=== PATIENT | female | born 1965 | race Caucasian/White ===

== ENCOUNTER 2019-09-22 13:29 | Emergency (ER) | payer MEDICAID ==
--- NOTE | 2019-09-22 13:42 | ER Document Report ---
ED Medical Screen (RME) - General Chief Complaint: Headache Stated Complaint: MIGRAINE, SWOLLEN EYE Time Seen by Provider: 09/22/19 13:38 Primary Care Provider: PAOLA OCONNOR NP [Primary Care Provider] - Follow up as needed Mode of Arrival: Ambulatory Information source: Patient Notes: 53-year-old presented to ED for complaint of migraine behind the left eye back to the frontal area. She states she has had migraines since she got a eye injury 7 years ago. States the swelling to the left eye has been for 2 weeks or more the pain has increased to the point of needing to come to the emergency room today. She has had the pain for the 2 weeks. She states she has been taken Tylenol at home. She states she saw her doctor at [facility] and he told her she needed to go see a doctor. She states she tried to go to her primary doctor and they sent her to the emergency room. There is swelling to above and below the left eye. She states her mother had mini strokes and she was drooling this morning. There is no facial droop at this time. She states she had a detached retina at the time of the injury and she has had 6 surgeries on the side. I have greeted and performed a rapid initial assessment of this patient. A comprehensive ED assessment and evaluation of the patient, analysis of test results and completion of medical decision making process will be conducted by an additional ED providers. - Related Data Allergies/Adverse Reactions: morphine [Morphine] Allergy (Verified 09/22/19 13:35) Past Medical History Psychiatric Medical History: Reports: Hx Depression Past Surgical History: Reports: Hx Hysterectomy - Immunizations Hx Diphtheria, Pertussis, Tetanus Vaccination: Yes Physical Exam - Vital signs Vitals: Temp Pulse Resp BP Pulse Ox 97.8 F 85 20 152/77 H 97 09/22/19 13:32 09/22/19 13:32 09/22/19 13:32 09/22/19 13:32 09/22/19 13:32 Course - Vital Signs Vital signs: Temp Pulse Resp BP Pulse Ox 97.8 F 85 20 152/77 H 97 09/22/19 13:32 09/22/19 13:32 09/22/19 13:32 09/22/19 13:32 09/22/19 13:32 Doctor's Discharge - Discharge Referrals: OCONNOR,PAOLA, LOGISTICS DIRECTOR [Primary Care Provider] - Follow up as needed
[2019-09-22 15:15] LABS: ABSOLUTE BASOPHILS # (AUTO) 0.1 10^3/uL (0.0-0.2); ABSOLUTE EOSINOPHILS # (AUTO) 0.2 10^3/uL (0.0-0.6); ABSOLUTE LYMPHOCYTES (AUTO) 3.3 10^3/uL (0.5-4.7); ABSOLUTE MONOCYTES (AUTO) 0.4 10^3/uL (0.1-1.4); ABSOLUTE NEUT (AUTO) 5.2 10^3/uL (1.7-8.2); BASOPHILS % (AUTO) 0.8 % (0-2); EOSINOPHILS % (AUTO) 2.4 % (0-6); HEMATOCRIT 37.3 % (36.0-47.0); LYMPHOCYTES % (AUTO) 35.5 % (13-45); MEAN CORPUSCULAR HEMOGLOBIN 31.4 pg (27.0-33.4); MEAN CORPUSCULAR HGB CONC 34.8 g/dL (32.0-36.0); MEAN CORPUSCULAR VOLUME 90 fl (80-97); MONOCYTES % (AUTO) 4.8 % (3-13); PLATELET COUNT 295 10^3/uL (150-450); RED BLOOD COUNT 4.13 10^6/uL (3.72-5.28); RED CELL DISTRIBUTION WIDTH 13.4 % (11.5-14.0); SEGMENTED NEUTROPHILS % (AUTO) 56.5 % (42-78); TOTAL CELLS COUNTED % (AUTO) 100 %; WHITE BLOOD COUNT 9.2 10^3/uL (4.0-10.5)
[2019-09-22 15:20] LABS: INTERNATIONAL RATION (INR) 0.98
[2019-09-22 15:21] LABS: PARTIAL THROMBOPLASTIN TIME 28.9 SEC (23.5-35.8)
[2019-09-22 15:30] LABS: ALBUMIN 4.5 g/dL (3.5-5.0); ALKALINE PHOSPHATASE 58 U/L (38-126); ASPARTATE AMINO TRANSFERASE 34 U/L (14-36); BILIRUBIN,DIRECT 0.1 mg/dL (0.0-0.4); BILIRUBIN,TOTAL 0.4 mg/dL (0.2-1.3); BLOOD UREA NITROGEN 10 mg/dL (7-20); CALCIUM 9.6 mg/dL (8.4-10.2); CARBON DIOXIDE 28 mmol/L (22-30); CHLORIDE 104 mmol/L (98-107); GLUCOSE 84 mg/dL (75-110); POTASSIUM 4.5 mmol/L (3.6-5.0); TOTAL PROTEIN 7.6 g/dL (6.3-8.2)
[2019-09-22 15:31] LABS: ANION GAP 9 (5-19)
--- NOTE | 2019-09-22 15:34 | ER Document Report ---
ED General - General Chief Complaint: Headache Stated Complaint: MIGRAINE, SWOLLEN EYE Time Seen by Provider: 09/22/19 13:38 Primary Care Provider: PAOLA OCONNOR NP [NURSE PRACTITIONER] - Follow up as needed Mode of Arrival: Ambulatory TRAVEL OUTSIDE OF THE [place] IN LAST 30 DAYS: No - Related Data Allergies/Adverse Reactions: morphine [Morphine] Allergy (Verified 09/22/19 13:35) Past Medical History - General Information source: Patient - Social History Smoking Status: Unknown if Ever Smoked Chew tobacco use (# tins/day): No Frequency of alcohol use: None Drug Abuse: None Family History: Other - Mom with a history of TIAs at early age Patient has suicidal ideation: No Patient has homicidal ideation: No Psychiatric Medical History: Reports: Hx Depression Past Surgical History: Reports: Hx Hysterectomy - Immunizations Hx Diphtheria, Pertussis, Tetanus Vaccination: Yes Physical Exam - Vital signs Vitals: Temp Pulse Resp BP Pulse Ox 97.8 F 85 20 152/77 H 97 09/22/19 13:32 09/22/19 13:32 09/22/19 13:32 09/22/19 13:32 09/22/19 13:32 - Notes Notes: Patient presents emergency department complaining of a headache this been going on for the past 2 weeks. Headache is located in the temporal area. It came on gradually got progressively worse was not a thunderclap headache not the worst headache she is ever had. Headache is similar to previous headaches she is had. Reports that she had a significant injury to her left side of her face and I several years ago and since that time is been having intermittent headaches. This is similar to what she said before. She is tried Tylenol without relief called her family doctor referred to the ED. Patient also reports that she had swelling around her left eye for the past 2 weeks also. This several times in the past health was related to her previous eye injury is received steroid injections in her eye. She is to get these every 3 months last one was 3 months ago due for one next week she has not had any fevers URI symptoms sore throat cough chest pain shortness of breath nausea vomiting abdominal pain rashes itching. No contact history is obtainable. Vision is chronically decreased in her left eye and is unchanged. Feeling there is also reports that the patient had a droopy smile and was droo ling earlier today that lasted for about an hour. They said she is back to normal at this time. She is never had this before. Mother has a history of TIAs but the patient is never had a TIA. During this time the headache was not worse. She had no numbness or weakness in the arms or legs and no dizziness. The members say that her speech and swallow back to normal Medical history for previous OH several years ago that was detected on an EKG, she never had a cardiac evaluation after this, she has no diabetes hypertension elevated cholesterol. Also has depression previous facial injury with damage to the facial nerves and a detached retina Social history smokes but quit. No alcohol. Review of systems pertinent positives and negatives in HPI otherwise all the systems were reviewed and acutely negative PHYSICIAN EXAM -vital signs are noted triage note and note from triage reviewed GENERAL: Well-appearing, well-nourished and in __no acute distress____ HEAD: Atraumatic, normocephalic. EYES: The right pupil is round and reactive. The left pupil slightly irregular he says is normal. There is a hyperpigmented area at 6:00 left eye which is chronic. Extraocular movements intact, sclera anicteric, conjunctiva are normal. There is no hyphema or evidence of conjunctival hemorrhage. Some mild swelling of the upper and lower lid no swelling in the rest of the face. ENT: nares patent, oropharynx clear without exudates. No lesions in the mouth moist mucous membranes. She has tenderness in the left religious area but no pulsations. Rest of the face is nontender she has no tenderness over the mandibles NECK: supple without lymphadenopathy no meningeal signs no bruit LUNGS: Breath sounds clear to auscultation bilaterally and equal. No wheezes rales or rhonchi. HEART: Regular rate and rhythm without murmurs ABDOMEN: Soft, nontender, normoactive bowel sounds. EXTREMITIES: No deformity, no edema. NEUROLOGICAL: Alert and oriented x4 slightly asymmetric forehead smile which she says is chronic. Symmetrical smile. Tongue is midline she has an intact gag and symmetrical surgical shrug motor strength is 5/5 bilaterally in the lower extremities. Sensation is intact to pinprick and light touch. Toes downgoing. Gait was normal. Negative Romberg Skin reveals no rashes PSYCH: Normal mood, normal affect. SKIN: Warm, Dry, normal turgor, no rashes or lesions noted. BACK-nontender in the midline Course - Re-evaluation Re-evalutation: 09/22/19 18:36 ED patient is remained stable she had serial exams has remained neurologically intact with no additional episodes of drooling. Treated with Reglan and Benadryl with no relief and then 1 dose of fentanyl with significant provement of symptoms. At this point she says headache is markedly improved and she is actually able to open her eye a little bit better. Medical decision-making patient presents with a left-sided headaches abnormal for 2 weeks that she has had in the past due to her retinal detachment. Head CT is negative. Presentation certainly not consistent with subarachnoid hemorrhage or meningitis. Symptoms some confusion where she is reports some drooling and some facial droop the last for about 30 minutes with no other symptoms. Does not have significant risk factors for CVA. CT of the head and neck were both negative. I did talk to the patient about the symptoms and offered the patient overnight observation but she prefers to go home with her third and certainly think is reasonable. She will need follow-up with the family doctor to check her cholesterol. I recommended she start taking 1 baby aspirin daily after she sees her eye doctor on Wednesday because she is scheduled for steroid injection. To follow-up with the family doctor. She be given a short course of narcotics for pain and was warned about the side effects of the medication. Of note patient reports that she is really not allergic to morphine it just makes her very drowsy and she had no evidence of allergic reaction to the fentanyl Dictation was done using voice recognition software. There may be some gr ammatical errors which are unintentional 09/22/19 19:00 09/22/19 19:01 09/22/19 19:06 Dictation was done using voice recognition software. There may be some grammatical errors which are unintentional - Vital Signs Vital signs: Temp Pulse Resp BP Pulse Ox 97.8 F 85 20 152/77 H 97 09/22/19 13:32 09/22/19 13:32 09/22/19 13:32 09/22/19 13:32 09/22/19 13:32 - Laboratory Result Diagrams: 09/22/19 15:01 09/22/19 15:01 Laboratory results interpreted by me: 09/22/19 15:01 Creatinine 0.49 L - Diagnostic Test Radiology reviewed: Reports reviewed - EKG Interpretation by Me Additional EKG results interpreted by me: 09/22/19 18:36 EKG read by me shows a normal sinus rhythm with a normal axis and QT interval. There is no ST abnormalities Discharge - Discharge Clinical Impression: Headache around the eyes, Elevated blood pressure, Facial droop Condition: Good Disposition: HOME, SELF-CARE Instructions: Oral Narcotic Medication ([facility]), Headache ([facility]), Transient Ischemic Attack ([facility]) Additional Instructions: Please review the discharge instructions, they will tell you about your disease/injury and what you need to return to the ED for Return to the ED if you feel worse or can follow-up with your family doctor Your blood pressure was elevated today needs to be rechecked again in 1 to 2 weeks to determine if need to be on medication or have your medications adjusted. Untreated hypertension can cause heart attack stroke and kidney failure The pain medications may cause drowsiness. Be careful if you are using crutches. Do not drive or operate machinery. Do not take Tylenol with the pain medication Start taking one enteric-coated aspirin daily after you see your eye doctor Prescriptions: Hydrocodone/Acetaminophen [[place] 5-325 mg Tablet] 1 tab PO Q6 #10 tablet Forms: Elevated Blood Pressure Referrals: PAOLA OCONNOR NP [NURSE PRACTITIONER] - Follow up as needed
[2019-09-22] MEDS ORDERED: METOCLOPRAMIDE HCL INJ/PF 10 MG/2 ML SDV IV ONE (15:40)
[2019-09-22] MEDS ORDERED: DIPHENHYDRAMINE HCL 50 MG/ML VIAL IV ONE (15:40)
--- NOTE | 2019-09-22 16:48 | RADIOLOGY REPORT (SQ) ---
EXAM DESCRIPTION: CT HEAD COMBO COMPLETED DATE/TIME: 09/22/2019 4:26 pm REASON FOR STUDY: TIA COMPARISON: None. TECHNIQUE: Axial images acquired through the brain without and with intravenous contrast. Images re viewed with bone, brain and subdural windows. Additional sagittal and coronal reconstructions were g enerated. Images stored on PACS. CT angio [place] of [place] was performed. Thin section postcontrast CT images were reviewed with maxim um intensity projected images of the [place] in multiple orientations. All CT scanners at this facility use dose modulation, iterative reconstruction, and/or weight based d osing when appropriate to reduce radiation dose to as low as reasonably achievable (ALARA). [facility]: Dose Right [facility]: CareDose [facility]: Dose Right [facility]: Teradose 4D [facility]: [employer] CONTRAST TYPE AND DOSE: Not reported on scanned forms RENAL FUNCTION: BUN 10; creatinine 0.49 RADIATION DOSE: . LIMITATIONS: None. FINDINGS: VENTRICLES: Normal size and contour. CEREBRUM: No masses. No hemorrhage. No midline shift. No evidence for acute infarction. Normal gra y/white matter differentiation. No areas of low density in the white matter. CEREBELLUM: No masses. No hemorrhage. No alteration of density. No evidence for acute infarction. No enhancing lesions. EXTRA-AXIAL SPACES: No fluid collections. No enhancing lesions. ORBITS AND GLOBE: No intra- or extraconal masses. Normal contour of globe without masses. CALVARIUM: No fracture. PARANASAL SINUSES: No fluid or mucosal thickening. SOFT TISSUES: No mass or hematoma. OTHER: No other significant finding. CTA COW: [place]: The anterior, middle, posterior cerebral arteries are all patent. No evidence of a neurysm or focal stenosis. POSTERIOR CIRCULATION: The distal vertebral arteries are patent as is the basilar artery. No aneurysm . OTHER: No other significant finding. IMPRESSION: NORMAL BRAIN CT WITH AND WITHOUT CONTRAST. NO CTA EVIDENCE OF STENOSIS OR ANEURYSM OF THE [place]. EVIDENCE OF ACUTE STROKE: NO. TECHNICAL DOCUMENTATION: JOB ID: [id number] Quality ID # [id number]: Final reports with documentation of one or more dose reduction techniques (e.g., Au tomated exposure control, adjustment of the mA and/or kV according to patient size, use of iterative reconstruction technique) 2010 [employer]- All Rights Reserved Reading location - IP/workstation name: [email or web address]
--- NOTE | 2019-09-22 16:56 | RADIOLOGY REPORT (SQ) ---
EXAM DESCRIPTION: CTA NECK COMPLETED DATE/TIME: 09/22/2019 4:26 pm REASON FOR STUDY: TIA COMPARISON: None. TECHNIQUE: Axial dynamic scanning technique with dynamic contrast enhancement through the extra-scrap wheeler nial carotid and vertebral arteries. Multiplanar reconstruction. 3-D MIPS and Volume-rendered imag es acquired at the workstation and saved to PACS. Images are reviewed in soft tissue, bone, lung w indows. All CT scanners at this facility use dose modulation, iterative reconstruction, and/or weight based d osing when appropriate to reduce radiation dose to as low as reasonably achievable (ALARA). [facility]: Dose Right [facility]: CareDose [facility]: Dose Right [facility]: Teradose 4D [facility]: [employer] CONTRAST TYPE AND DOSE: contrast/concentration: Isovue 350.00 mg/ml; Total Contrast Delivered: 70.0 ml; Total Saline Delivered: 75.0 ml RENAL FUNCTION: BUN 10; creatinine 0.49 LIMITATIONS: None. FINDINGS: AORTIC ARCH: Normal three-vessel origin. Bilateral subclavian arteries are patent. No d issection. RIGHT CAROTIDS: Patent common, internal and external carotid arteries without suggestion of significa nt stenosis or irregular plaque. No dissection. Incidental note is made of tortuous course of the i nternal carotid artery. RIGHT VERTEBRAL: Patent. No dissection. LEFT CAROTIDS: Patent common, internal and external carotid arteries without suggestion of significan t stenosis or irregular plaque. No dissection. LEFT VERTEBRAL: Patent. No dissection. OTHER: Incidental note is made of ACDF spanning the C5 through C7 levels. OTHER: 3-D reconstructions confirm findings. IMPRESSION: No evidence of dissection or flow limiting stenosis. COMMENT: Quality ID #[id number]: Measurements of distal internal carotid diameter were used as the denomina tor for stenosis measurement. TECHNICAL DOCUMENTATION: JOB ID: [id number] Quality ID # [id number]: Final reports with documentation of one or more dose reduction techniques (e.g., Au tomated exposure control, adjustment of the mA and/or kV according to patient size, use of iterative reconstruction technique) 2010 [employer]- All Rights Reserved Reading location - IP/workstation name: [email or web address]
[2019-09-22] MEDS ORDERED: ONDANSETRON HCL INJ/PF 4 MG/2 ML SDV IV ONE (17:42)
[2019-09-22] MEDS ORDERED: FENTANYL CITRATE INJ/PF 100 MCG/2 ML AMPUL IV ONE (17:43)
[2019-09-22 19:27] VITALS: BP 133/85
--- NOTE | 2019-09-23 12:47 | EKG REPORT ---
SEVERITY:- NORMAL ECG - SINUS RHYTHM : Confirmed by: Amilcar Wall 23-Sep-2019 12:45:54
== END 2019-09-22 19:37 | disposition home or self-care (01) ==
LOC: ER 13:29
DX: R51 Headache (principal); R29.810 Facial weakness; R22.0 Localized swelling, mass and lump, head; S05.90XD Unspecified injury of unspecified eye and orbit, subsequent encounter; X58.XXXD Exposure to other specified factors, subsequent encounter; I10 Essential (primary) hypertension; Z87.891 Personal history of nicotine dependence
CPT/HCPCS: 93005; 99284; 96374; 96375; 36415; 83690; 85025; 85652; 85610; 85730; 80053; 70470; 70498; 93010; J1200; J3010; J2765; J2405

== ENCOUNTER → 2020-01-03 | Outpatient (CLI) | payer MEDICAID ==
--- NOTE | 2020-01-03 15:48 | RADIOLOGY REPORT (SQ) ---
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 Images stored on PACS. CONTRAST TYPE AND DOSE: 15 mL Dotarem. RENAL FUNCTION: Not indicated. ACR Type II contrast agent associated with few, if any, unconfounded cases of NSF LIMITATIONS: None. FINDINGS: ANATOMY: No anomalies. Normal vascular flow voids. Pituitary fossa normal. CSF SPACES: Normal in size and contour. No hemorrhage. CEREBRUM: Sulci and gyri normal in size and contour. Normal white matter signal on FLAIR imaging. No evidence of hemorrhage, mass, or extraaxial fluid collection. No abnormal enhancement post contrast. POSTERIOR FOSSA: No signal alteration. No hemorrhage. No edema, masses, or mass effect. Internal vinod tory canals, cerebellopontine angles, mastoids normal. No enhancing lesions. No abnormal enhancement post contrast. DIFFUSION IMAGING: Negative for acute or subacute infarction. ORBITS: No masses. Globes normal. PARANASAL SINUSES: No fluid levels. Mucosa normal. OTHER: No other significant finding. IMPRESSION: NORMAL MRI OF THE BRAIN WITHOUT AND WITH INTRAVENOUS GADOLINIUM CONTRAST. EVIDENCE OF ACUTE STROKE: NO. TECHNICAL DOCUMENTATION: JOB ID: [id number] 2010 [employer]- All Rights Reserved Reading location - IP/workstation name: [email or web address]
--- NOTE | 2020-01-03 15:51 | RADIOLOGY REPORT (SQ) ---
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 TECHNIQUE: Axial 3-D [id number] acquisition imaging performed through the brain in the area of t he [place] of [place]. Images reformatted using 3-D MIPS. LIMITATIONS: None. FINDINGS: SOURCE IMAGES: No unexpected findings on source images. No large masses. 3-D MIP: No aneurysm. No occlusions. No significant stenosis. OTHER: No other significant finding. IMPRESSION: NORMAL MRA OF THE [place]. TECHNICAL DOCUMENTATION: JOB ID: [id number] 2010 [employer]- All Rights Reserved Reading location - IP/workstation name: [email or web address]
== END ==
LOC: RAD 14:09
PROVIDERS: ATTEND Ophthalmology
DX: I77.0 Arteriovenous fistula, acquired (principal)
CPT/HCPCS: 70544; 70553; 82565

== ENCOUNTER 2020-02-14 10:01 | Emergency (ER) | payer MEDICAID ==
[2020-02-14 10:15] VITALS: BP 122/88
[2020-02-14] MEDS ORDERED: MAGNESIUM CITRATE 296 ML BOTTLE PO ONE (10:17)
[2020-02-14] MEDS ORDERED: LIDOCAINE 5% (700 MG) TRANSDERMAL ADH..PATCH TP ONE (10:17)
--- NOTE | 2020-02-14 10:19 | ER Document Report ---
ED Neck/Back Problem - General Chief Complaint: Low Back Pain Stated Complaint: LEG NUMBNESS, TOES TINGLING Primary Care Provider: SAMANTHA HILTON MD [Primary Care Provider] - Follow up as needed Mode of Arrival: Wheelchair Information source: Patient Notes: 54-year-old female presents to ED for complaint of back pain radiating down both legs. She has had back surgery in this area. She has been diagnosed with sciatica. She has been out of work for the last 8 months due to back problems and blind in her left eye. She states about a month ago the pain in her legs and back got much worse and in 3 days ago she noticed a burn mariposa "to the center of her back where her previous surgery was. She states that she thinks this is from the metal rods in her back. I have showed her a picture of the metal in her back and it is not close to the same size of the red mariposa on her back. She states she does have a neurosurgeon in [place] and I have instructed her please to call them today or tomorrow and schedule follow-up with them. Also she is very constipated according to her x-rays that she had done earlier this morning outpatient. We have given her mag citrate to take home with her. She states she does have a problem with having bowel movements. She was seen by a primary care doctor [facility] on Wednesday who ordered the x-ray this morning. He also ordered some Percocet Flexeril and prednisone. He states he did give her a Toradol shot at that time. TRAVEL OUTSIDE OF THE [place] IN LAST 30 DAYS: No - HPI Patient complains to provider of: Lower back - And abdomen cramping Onset: Other - 8 months worse the last month and states she sees a "burn mariposa "to her lower back. Onset: Chronic Timing: Still present Quality of pain: Burning, Cramping, Sharp Severity: Moderate Pain Level: 4 Context: Bending, Turning, Other - Okay Recent injury: No Associated symptoms: Constipation - On narcotics, Like prior neck/back pain, Radiation to leg, Lower back pain. denies: Chest pain, Abdominal pain, Chills, Fever, Incontinence, Motor loss, Numbness/tingling, Radiation to arm, Radiation to chest, Sensory loss, Sweaty, Unable to urinate, Upper back pain Exacerbated by: Movement of trunk, Sitting position Relieved by: Nothing Similar symptoms previously: Yes Recently seen / treated by doctor: No - Related Data Allergies/Adverse Reactions: morphine [Morphine] Allergy (Verified 09/22/19 13:35) Past Medical History - General Information source: Patient - Social History Smoking Status: Former Smoker Chew tobacco use (# tins/day): No Frequency of alcohol use: None Drug Abuse: None Lives with: Family Family History: Reviewed & Not Pertinent, Other Patient has suicidal ideation: No Patient has homicidal ideation: No - Past Medical History Cardiac Medical History: Reports: None Pulmonary Medical History: Reports: None EENT Medical History: Reports: None Neurological Medical History: Reports: None Endocrine Medical History: Reports: None Renal/ Medical History: Reports: None Malignancy Medical History: Reports: None GI Medical History: Reports: None Musculoskeletal Medical History: Reports Hx Musculoskeletal Deformity, Reports Hx Musculoskeletal Trauma Skin Medical History: Reports None Psychiatric Medical History: Reports: Hx Depression Traumatic Medical History: Reports: None Infectious Medical History: Reports: None Past Surgical History: Reports: Hx Hysterectomy, Hx Orthopedic Surgery - Back surgery - Immunizations Hx Diphtheria, Pertussis, Tetanus Vaccination: Yes Review of Systems - Review of Systems Constitutional: No symptoms reported EENT: No symptoms reported Cardiovascular: No symptoms reported Respiratory: No symptoms reported Gastrointestinal: Abdominal pain, Constipation Genitourinary: No symptoms reported Female Genitourinary: No symptoms reported Musculoskeletal: Back pain, Muscle pain, Muscle stiffness Skin: No symptoms reported Hematologic/Lymphatic: No symptoms reported Neurological/Psychological: No symptoms reported -: Yes All other systems reviewed and negative Physical Exam - Vital signs Vitals: Temp Pulse Resp BP Pulse Ox 98.2 F 84 14 122/88 H 96 02/14/20 10:07 02/14/20 10:07 02/14/20 10:07 02/14/20 10:07 02/14/20 10:07 Interpretation: Normal - General General appearance: Appears well, Alert - HEENT Head: Normocephalic, Atraumatic Eyes: Normal Pupils: PERRL - Respiratory Respiratory status: No respiratory distress Chest status: Nontender Breath sounds: Normal Chest palpation: Normal - Cardiovascular Rhythm: Regular Heart sounds: Normal auscultation Murmur: No - Abdominal Inspection: Normal Distension: No distension Bowel sounds: Normal Tenderness: Tender Organomegaly: No organomegaly - Back Back: Tender, Vertebra tenderness, Other - Mild red patch to the lower back appears to be from hot packs or cold packs. Notes: No signs or symptoms of cauda equina, no saddle anesthesia, no loss control of bowel bladder, no loss of sensation or use of lower extremities. She states she is having bowel movements but she is more bound up since she started taking Percocet. - Extremities General upper extremity: Normal inspection, Nontender, Normal color, Normal ROM, Normal temperature General lower extremity: Normal inspection, Nontender, Normal color, Normal ROM, Normal temperature, Normal weight bearing. No: Darshan's sign - Neurological Neuro grossly intact: Yes Cognition: Normal Orientation: AAOx4 Willet Coma Scale Eye Opening: Spontaneous Willet Coma Scale Verbal: Oriented Boaz Coma Scale Motor: Obeys Commands Boaz Coma Scale Total: 15 Speech: Normal Motor strength normal: LUE, RUE, LLE, RLE Sensory: Normal - Psychological Associated symptoms: Normal affect, Normal mood - Skin Skin Temperature: Warm Skin Moisture: Dry Skin Color: Normal Course - Re-evaluation Re-evalutation: 02/14/20 10:44 Discussed outpatient x-rays with patient and written report of outpatient x-rays given to patient as well as a disc so she can follow-up with neurosurgeon. X- rays show a large amount of stool throughout the colon. I have discussed this with patient and given her mag citrate to drink as soon as she gets home I have also given her instructions on use of MiraLAX twice a day. I have recommended she call her neurosurgeon in [place] today and schedule a follow-up appointment. I also suggested that if she continues to be bound up that she talks to a customer support specialist. - Vital Signs Vital signs: Temp Pulse Resp BP Pulse Ox 98.2 F 84 14 122/88 H 96 02/14/20 10:07 02/14/20 10:07 02/14/20 10:07 02/14/20 10:07 02/14/20 10:07 - Diagnostic Test Radiology reviewed: Image reviewed, Reports reviewed Discharge - Discharge Clinical Impression: Low back pain of over 3 months duration, Bilateral sciatica Constipation Qualifiers: Constipation type: unspecified constipation type Qualified Code(s): K59.00 - Constipation, unspecified Disposition: HOME, SELF-CARE Additional Instructions: Chronic Back Pain Chronic back pain (pain persisting longer than three months) is a common problem. A medical evaluation can look for herniated disc, arthritis, ost eoporosis, tumors, and infections. But at least half the time, there's no obvious treatable cause. Anxiety and depression tend to worsen back pain. Ibuprofen or other anti-inflammatory medicine can help. A heating pad, used for 15-20 minutes at a time, can ease pain. For this type of back pain, narcotic medicines should be avoided. Muscle relaxers are rarely helpful unless you're having spasms. Activity is important. Find an aerobic exercise program that your back can tolerate. Too much rest makes back pain worse. Specific back exercises are usually prescribed to strengthen the back and abdominal muscles. Often, a physical therapist can help. Avoid heavy lifting, working while bent over, or standing with both knees straight. Most back pain patients do better with a firm mattress. If new symptoms of a "herniated disc" (radiation of pain, numbness, or tingling down the back of the leg or weakness in the leg) occur, you should be re-examined. ABDOMINAL PAIN: There are many causes of abdominal pain. Pain can mean a serious problem requiring surgery (such as appendicitis). It can also be an innocent problem that goes away on its own (such as a viral infection). Often, time must pass to determine the cause of pain. The physician does not feel that hospitalization is necessary, at present. Things may change within the next 24 hours. Call the doctor or come back for re- examination if any problems occur, such as: (1) Pain that becomes more severe, steady, or becomes concentrated in one specific area. Also, pain that is more severe with movement or coughing. (2) Vomiting that persists or becomes more frequent. (3) Blood in the vomitus, urine, or bowel movements. Blood in the stool may have a tarry or black appearance. (4) Shaking chills or fever greater than 100 degrees F. (5) The abdomen becomes more distended or swollen. (6) Bowel movements cease. (7) Failure to improve as expected. CONSTIPATION: Constipation is a common problem. It is especially likely as you get older. Constipation is a common cause of abdominal pain, but sometimes causes no symptoms at all. Causes of constipation include certain medications, dehydration, diets, inactivity, and low-fiber intake. Rarely, it can be a symptom of underlying disease. The physician has evaluated you for this. Avoid constipation by eating a diet high in fiber, fruits, and vegetables. Drink plenty of liquids. Get regular exercise. If possible, avoid constipating medicines like narcotic pain medication. Some vitamin tablets can cause constipation. Stool softeners may be needed for difficult cases. An excellent stool softener is Konsyl which is available at [employer], and [employer]. Just add a teaspoon to a glass of pineapple or orange juice daily or twice a day if needed. Laxatives are useful for occasional constipation. You should use them only when necessary. Too-frequent use can make your bowels dependent on them. Some over the counter laxatives available without prescription are: Milk of Magnesia, 1-2 tablespoons twice a day Dulcolax, 5 mg pill or 10 mg suppository. Citrate of Magnesia, 4-5 ounces a day for a day or two For acute constipation, Fleet's Enemas and Dulcolax suppositories are helpful. Chronic, rodent exterminator use of laxatives or enemas is not a good idea. Your bowel may become dependant on them. You do not need to have a bowel movement every day. Many people do fine with a bowel movement every three or four days. You should call your doctor or return for re-evaluation if you pass blood in the stool, or if you develop fever or increasing abdominal pain. BULK LAXATIVES: Bulk laxatives make the stool softer and bulkier. They're useful for preventing constipation. You can choose between psyllium, methylcellulose, and polycarbophil. They are available without a prescription. Psyllium brand names include Konsyl, Metamucil, Perdiem, Effer-Syllium and Hydrocil. It's available as powder, flavored drink powder, or chewable. The usual dose of psyllium powder is one heaping teaspoon in water each morning, increasing to twice a day if needed. Jameson juice can disguise the slightly grainy texture. Methylcellulose is marketed as Citrucel and other brands. The average dose is two grams in a cup of water one to three times a day. Polycarbophil is marketed as Fiber-Con. Take two tablets with a cup of water one to three times a day. LAXATIVE: A laxative agent has been prescribed for your condition. This should result in passage of stool within 12 hours. Some mild intestinal cramping is common as the hard stool begins to move. You may have loose or runny stools for a short time. Contact your doctor if there is severe cramping, vomiting, or passage of blood. Return for further care if this medicine fails to improve your condition. Toradol Injection You have been given an injection of ketorolac tromethamine (Toradol). This is an excellent, safe drug for pain control. It also has potent antiinflammatory action. You should have significant pain relief within about one hour. Toradol is not addicting and is non-sedating. It does not interfere with driving or work. Call or return if you develop itching, hives, shortness of breath, or rash. Anti-Inflammatory Medication You have received a prescription for an antiinflammatory agent. This is an excellent, safe drug for pain control. In addition, it has potent antiinflammatory effects which are beneficial, especially in the treatment of injuries, arthritis, or tendonitis. It's best to take this medicine with food. Persons with ulcer disease or allergy to aspirin should notify their physician of this before taking this drug. Take the medication exactly as prescribed. Don't take additional doses unless instructed to do so by your doctor. If you develop wheezing, shortness of breath, hives, faintness, stomach pain, vomiting, or dark black stools, return for re-evaluation at once. ICE PACKS: Apply ice packs frequently against the painful area. Many different schedules are recommended, such as "20 minutes on, 20 minutes off" or "one hour ice, two hours rest." If you need to work, you may need to go longer between ice treatments. You should plan to have the area ice packed AT LEAST one fourth of the time. The ice should be applied over the wrap, tape, or splint, or over a layer of cloth -- not directly against the skin. Some ice bags have a built-in cloth and can be put directly on the skin. WARM PACKS: After approximately two days, apply gentle heat (such as a heating pad or hot water bottle) for about 20 to 30 minutes about every two hours -- at least four times daily. Warmth and elevation will help you make a more rapid recovery, and will ease the pain considerably. Do not use HOT heat, and never apply heat for longer than 30 minutes. The continuous heat can invisibly damage skin and muscles -- even when no burn is seen on the surface. Damaged muscles can make you MORE sore. Placed a Lidoderm patch on your back. This needs to be removed in 12 hours. You can get Lidoderm patches [id number] and they can only be left on for 12 hours. FOLLOW-UP CARE: If you have been referred to a physician for follow-up care, call the physicians office for an appointment as you were instructed or within the next two days. If you experience worsening or a significant change in your symptoms, notify the physician immediately or return to the Emergency Department at any time for re-evaluation. Prescriptions: Naproxen 500 mg PO BIDP PRN #20 tablet PRN Reason: Forms: Elevated Blood Pressure Referrals: SAMANTHA HILTON MD [Primary Care Provider] - Follow up as needed
[2020-02-14] MEDS ORDERED: KETOROLAC TROMETHAMINE 60 MG/2 ML SDV IM ONE (10:32)
== END 2020-02-14 10:43 | disposition home or self-care (01) ==
LOC: ER 10:01
DX: M54.42 Lumbago with sciatica, left side (principal); M54.41 Lumbago with sciatica, right side; K59.00 Constipation, unspecified; R20.0 Anesthesia of skin
CPT/HCPCS: 99283; 96372; J3490 ×2; J1885

== ENCOUNTER → 2020-02-14 | Outpatient (CLI) | payer MEDICAID ==
--- NOTE | 2020-02-14 10:34 | RADIOLOGY REPORT (SQ) ---
EXAM DESCRIPTION: L SPINE WHOLE IMAGES COMPLETED DATE/TIME: 02/14/2020 9:54 am REASON FOR STUDY: LUMBAR RADICULOPATHY (M54.16) M54.16 RADICULOPATHY, LUMBAR REGION COMPARISON: 05/06/2007 NUMBER OF VIEWS: Five views including obliques. TECHNIQUE: AP, lateral, oblique, and sacral radiographic images acquired of the lumbar spine. LIMITATIONS: None. FINDINGS: MINERALIZATION: Mildly decreased. SEGMENTATION: 5 [id number] lumbar vertebral bodies. ALIGNMENT: There is grade 2 anterolisthesis of L5 on S1. VERTEBRAE: Maintained height. No fracture or worrisome bone lesion. DISCS: Multilevel disc height loss throughout the lumbar spine greatest at L3-4 and L1-2. There is i nterbody fusion hardware at L4-5. POSTERIOR ELEMENTS: Multilevel facet arthropathy. No definite fracture. HARDWARE: L4-5 posterior fusion hardware with associated interbody spacer. PARASPINAL SOFT TISSUES: Normal. PELVIS: Intact as visualized. No fractures or worrisome bone lesions. SI joints intact. OTHER: No other significant finding. IMPRESSION: 1. No definite acute bony abnormality of the lumbar spine. 2. Posterior fusion hardware at L4-5 with grade 2 anterolisthesis of L5 on S1. Findings appear prog ressed compared to CT dated 05/06/2007. 3. Multilevel additional degenerative disc disease throughout the lumbar spine and facet arthropathy . TECHNICAL DOCUMENTATION: JOB ID: [id number] 2010 [employer]- All Rights Reserved Reading location - IP/workstation name: [email or web address]
--- NOTE | 2020-02-14 10:35 | RADIOLOGY REPORT (SQ) ---
EXAM DESCRIPTION: SACROILIAC JOINTS IMAGES COMPLETED DATE/TIME: 02/14/2020 9:54 am REASON FOR STUDY: LUMBAR RADICULOPATHY (M54.16) M54.16 RADICULOPATHY, LUMBAR REGION COMPARISON: None. NUMBER OF VIEWS: Three views. TECHNIQUE: AP and oblique views of the sacroiliac joints. LIMITATIONS: None. FINDINGS: MINERALIZATION: Decreased. BONES: No acute fracture or dislocation. No worrisome bone lesions. JOINTS: The sacroiliac joints are patent. No unusual widening, sclerosis, or fusion. Minimal osteop hytosis. SOFT TISSUES: No soft tissue swelling. No radio-opaque foreign body. OTHER: Lumbar posterior fusion hardware at L4-5. IMPRESSION: Minimal SI joint osteophytosis. No evidence of acute bony abnormality, joint fusion or widening. TECHNICAL DOCUMENTATION: JOB ID: [id number] 2010 [employer]- All Rights Reserved Reading location - IP/workstation name: [email or web address]
== END ==
LOC: RAD 09:31
PROVIDERS: ATTEND Nurse Practitioner Primary Care
DX: M51.16 Intervertebral disc disorders with radiculopathy, lumbar region (principal); M25.78 Osteophyte, vertebrae
CPT/HCPCS: 72110; 72200

== ENCOUNTER 2020-04-23 10:44 | Emergency (ER) | payer MEDICAID ==
[2020-04-23] MEDS ORDERED: OXYCODONE-ACETAMINOPHEN 5-325 MG TABLET PO ONE (11:32)
--- NOTE | 2020-04-23 11:34 | ER Document Report ---
ED Medical Screen (RME) - General Chief Complaint: Back Pain Stated Complaint: BACK PAIN Time Seen by Provider: 04/23/20 11:21 Primary Care Provider: SAMANTHA HILTON MD [Primary Care Provider] - Follow up as needed Mode of Arrival: Wheelchair Information source: Patient Notes: Patient presents complaining of low back pain for the past 3 months. Patient feels that the pain has become more severe and she cannot tolerate the pain symptoms at home. Patient states that she is on tramadol but that she did not want to refill this medication because it did not do anything for her. Patient is also prescribed Celebrex but did not take it today. Patient is followed by an orthopedic doctor and is awaiting a referral to Dr. freeman later in April. Patient denies any new traumatic injury. Patient states she is been told she has arthritis. Patient is insistent she needs an emergent MRI at this time. I have greeted and performed a rapid initial assessment of this patient. A comprehensive ED assessment and evaluation of the patient, analysis of test results and completion of the medical decision making process will be conducted by additional ED providers. TRAVEL OUTSIDE OF THE [place] IN LAST 30 DAYS: No - Related Data Allergies/Adverse Reactions: morphine [Morphine] Allergy (Verified 09/22/19 13:35) Past Medical History Musculoskeltal Medical History: Reports Hx Musculoskeletal Deformity, Reports Hx Musculoskeletal Trauma Psychiatric Medical History: Reports: Hx Depression Past Surgical History: Reports: Hx Hysterectomy, Hx Orthopedic Surgery - lumbar spinal fusion, les carpal tunnel - Immunizations Hx Diphtheria, Pertussis, Tetanus Vaccination: Yes Physical Exam - Vital signs Vitals: Temp Pulse Resp BP Pulse Ox 98.1 F 84 18 121/75 99 04/23/20 10:48 04/23/20 10:48 04/23/20 10:48 04/23/20 10:48 04/23/20 10:48 - Back Back: Tender - Lumbar paraspinal tenderness, Vertebra tenderness - Lower lumbar tenderness Course - Vital Signs Vital signs: Temp Pulse Resp BP Pulse Ox 98.1 F 84 18 121/75 99 04/23/20 10:48 04/23/20 10:48 04/23/20 10:48 04/23/20 10:48 04/23/20 10:48 Doctor's Discharge - Discharge Referrals: SMAANTHA HILTON MD [Primary Care Provider] - Follow up as needed
[2020-04-23] MEDS ORDERED: KETOROLAC TROMETHAMINE 60 MG/2 ML SDV IM ONE (14:34)
[2020-04-23] MEDS ORDERED: METHOCARBAMOL 750 MG TABLET PO ONE (14:35)
[2020-04-23] MEDS ORDERED: METHYLPREDNISOLONE ACETATE INJ 80 MG/1 ML VIAL IM ONE (14:35)
--- NOTE | 2020-04-23 14:44 | ER Document Report ---
ED General - General Chief Complaint: Low Back Pain Stated Complaint: BACK PAIN Time Seen by Provider: 04/23/20 11:21 Primary Care Provider: SAMANTHA HILTON MD [Primary Care Provider] - Follow up as needed Mode of Arrival: Wheelchair TRAVEL OUTSIDE OF THE [place] IN LAST 30 DAYS: No - HPI Onset: Other - over the last 3-4 months Onset/Duration: Gradual Quality of pain: No pain, Sharp Severity: Severe Pain Level: 5 Associated symptoms: Other - numbness and tingling in buttock area and some in her legs. Exacerbated by: Movement, Walking, Other - Staight Leg Raise Relieved by: Denies Similar symptoms previously: Yes - patient has a history of chronic back pain and she has had surgeries Recently seen / treated by doctor: Yes - patient seen at outpatient Ortho recently and in this ER in January 2020 Notes: 54 year old female with a history of Chronic Back Pain (she has had both neck and back surgeries in past) and Hypertension here in the ER for worsening chronic low back pain. The patient denies any recent trauma or inciting events. The patient says she has been having severe back pains for 3-4 months now and she has not gotten relief from various treatments (lidocaine patches, steroid injections, NSAIDs). The patient says she has some numbness and tingling in her buttocks which radiates down both legs. The patient denies saddle anesthesia, incontinence of bowel of bladder, or urinary retention. The patient has seen a General Orthopedist and she has an appointment with a Spine Surgeon in a month but she says she cannot wait that long. The patient has a PCP but she has not seen that provider recently. The patient is requesting an MRI from the ER. - Related Data Allergies/Adverse Reactions: morphine [Morphine] Allergy (Verified 04/23/20 14:22) Past Medical History - General Information source: Patient - Social History Smoking Status: Never Smoker Frequency of alcohol use: None Drug Abuse: None Family History: Reviewed & Not Pertinent, Other - Past Medical History Cardiac Medical History: Reports: Hx Hypertension Musculoskeletal Medical History: Reports Hx Musculoskeletal Deformity, Reports Hx Musculoskeletal Trauma Psychiatric Medical History: Reports: Hx Depression Past Surgical History: Reports: Hx Hysterectomy, Hx Orthopedic Surgery - lumbar spinal fusion, les carpal tunnel - Immunizations Hx Diphtheria, Pertussis, Tetanus Vaccination: Yes Review of Systems - Review of Systems Constitutional: No symptoms reported EENT: No symptoms reported Cardiovascular: No symptoms reported Respiratory: No symptoms reported Gastrointestinal: No symptoms reported Genitourinary: No symptoms reported Female Genitourinary: No symptoms reported Musculoskeletal: Back pain Skin: No symptoms reported Hematologic/Lymphatic: No symptoms reported Neurological/Psychological: No symptoms reported -: Yes All other systems reviewed and negative Physical Exam - Vital signs Vitals: Temp Pulse Resp BP Pulse Ox 98.1 F 84 18 121/75 99 04/23/20 10:48 04/23/20 10:48 04/23/20 10:48 04/23/20 10:48 04/23/20 10:48 - Notes Notes: GENERAL: Well-appearing, well-nourished and in mild acute distress due to her back pain. HEAD: Atraumatic, normocephalic. EYES: Pupils equal round and reactive to light, extraocular movements intact, sclera anicteric, conjunctiva are normal. ENT: External ears normal, nares patent, oropharynx clear without exudates. Moist mucous membranes. NECK: Normal range of motion, supple without lymphadenopathy or JVD. LUNGS: Breath sounds clear to auscultation bilaterally and equal. No wheezes rales or rhonchi. HEART: Regular rate and rhythm without murmurs, rubs or gallops. ABDOMEN: Soft, nontender, normoactive bowel sounds. No guarding, no rebound. No masses appreciated. BACK: Mild midline lumbar spinal tenderness on palpation with no step offs. Patient has pain bilaterally with straight leg raises at about 30-40 degrees. EXTREMITIES: Normal range of motion, no pitting or edema. No clubbing or cyanosis. NEUROLOGICAL: Cranial nerves II through XII grossly intact. Sensation in tact in legs. Normal strength in legs. Normal speech. PSYCH: Normal mood, normal affect. SKIN: Warm, Dry, normal turgor, no rashes or lesions noted. Course - Re-evaluation Re-evalutation: 04/23/20 15:04 The patient is here for chronic back pain. She has no concerning signs or symptoms of cord compression. Patient treated in the ER with IM Toradol, IM De pomedrol, PO Robaxin, and PO Percocet. Patient does not need an emergent MRI today. Patient told to follow up with her PCP, Spine Surgeon and/or a Pain Clinic for further management of her chronic back pain. Patient prescribed Naproxen, Robaxin, and short course of Tramadol by me. - Vital Signs Vital signs: Temp Pulse Resp BP Pulse Ox 98.1 F 84 18 121/75 99 04/23/20 10:48 04/23/20 10:48 04/23/20 10:48 04/23/20 10:48 04/23/20 10:48 Discharge - Discharge Clinical Impression: Back pain Qualifiers: Back pain location: low back pain Chronicity: chronic Back pain laterality: unspecified Sciatica presence: with sciatica Sciatica laterality: bilateral sciatica Qualified Code(s): M54.41 - Lumbago with sciatica, right side Condition: Stable Disposition: HOME, SELF-CARE Instructions: Low Back Pain ([facility]), Sciatica ([facility]) Additional Instructions: Follow up with your primary care doctor and with a Spine Surgeon for nursing home management of your chronic back pain. You can also consider following up in a pain clinic. Use Naproxen for back pain. Use Robaxin for muscle spasms. Use Tramadol for poorly controlled pain. Do not drive after taking Robaxin or Tramadol. Prescriptions: Naproxen 500 mg PO BID PRN #14 tablet PRN Reason: Methocarbamol [Robaxin 750 mg Tablet] 750 mg PO TID #30 tablet Tramadol HCl [Ultram 50 mg Tablet] 50 mg PO Q8H PRN #8 tab PRN Reason: Referrals: SAMANTHA HILTON MD [Primary Care Provider] - Follow up as needed
[2020-04-23 16:11] VITALS: BP 104/67
== END 2020-04-23 16:42 | disposition home or self-care (01) ==
LOC: ER 10:44
DX: G89.29 Other chronic pain (principal); M54.41 Lumbago with sciatica, right side; M54.42 Lumbago with sciatica, left side; I10 Essential (primary) hypertension; Z98.1 Arthrodesis status; Z88.6 Allergy status to analgesic agent; Z88.5 Allergy status to narcotic agent
CPT/HCPCS: 99283; 96372; J1885; J3490; J1040

== ENCOUNTER → 2020-09-06 | Outpatient (CLI) | payer MEDICAID ==
--- NOTE | 2020-09-06 13:05 | WOMENS IMAGING REPORT ---
EXAM DESCRIPTION: BILAT SCREENING MAMMO W/CAD IMAGES COMPLETED DATE/TIME: 09/06/2020 9:13 am REASON FOR STUDY: ROUTINE BILATERAL SCREENING;Z12.31 Z12.31 ENCNTR SCREEN MAMMOGRAM FOR MALIGNANT N EOPLASM OF [place]O COMPARISON: None. EXAM PARAMETERS: Standard craniocaudal and mediolateral oblique views of each breast recorded using digital acquisition. Read with the assistance of CAD. .[employer] Office Assistant Version 9.2 LIMITATIONS: None. FINDINGS: No suspicious masses, suspicious calcifications or architectural distortion. No areas of c oncern. IMPRESSION: NEGATIVE MAMMOGRAM. BIRADS 1 BREAST DENSITY: a. The breasts are almost entirely fatty. BIRAD: ASSESSMENT: 1 NEGATIVE RECOMMENDATION: ROUTINE SCREENING COMMENT: The patient has been notified of the results by letter per SA requirements. Additional no tification policies are in place for contacting patient with suspicious or incomplete findings. Quality ID #[id number]: The [employer] recommends an annual screening mammogram for women aged 40 years or over. This facility utilizes a reminder system to ensure that all patients receive reminder letters, and/or direct phone calls for appointments. This includes reminders for routine scr eening mammograms, diagnostic mammograms, or other Breast Imaging Interventions when appropriate. Th is patient will be placed in the appropriate reminder system. TECHNICAL DOCUMENTATION: FINDING NUMBER: (1) ASSESSMENT: (1) JOB ID: [id number] 2010 [employer]- All Rights Reserved Reading location - IP/workstation name: [email or web address]
--- OUTSIDE RECORDS SUMMARY | 2020-09-09 09:40 | XMS REPORT ---
:1965 [facility] [address] [place] [address] Care Team Providers Name Role Phone BUCK BHATT Primary Care Physician Unavailable JAYE JORGE Attending Clinician Unavailable MD Dann Holbrook Attending Clinician Unavailable MD Dann Holbrook Attending Clinician Unavailable Brian Attending Clinician Unavailable Franklin Attending Clinician Unavailable Clay Attending Clinician Unavailable Allergies, Adverse Reactions, Alerts Allergy Allergy Status Severity Reaction(s) Onset Inactive Treating C omments Name Type Date Date Clinician MORPHINE Drug Active Unknown allergy 4-27 00:00: 00 MORPHINE MORPHINE Active 2018-10 0-24 00:00: 00 TALK OUT TALK OUT Active 2018-10 OF MY HEAD OF MY HEAD 0-24 00:00: 00 Morphine Drug Active Low Hallucinations Allergy 1-23 00:00: 00 Morphine Allergy to Active substance Medications Ordered Filled Start Stop Current Ordering Indication Dosage Frequency Signature Comments Components Medication Medication Date Date Medication? Clinician (SIG) Name Name traZODone 2019-10 Yes 50MG Take 1-2 HCl 50 MG 1-10 tablets Oral TABLET 00:00: QHS 00 Doxepin HCl 2019-10 Yes 25MG 1-2 HS 25 MG Oral 1-10 CAPSULE 00:00: 00 Vraylar 3 2019-10 Yes 3MG 1 QD MG Oral 1-10 CAPSULE 00:00: 00 gabapentin 2019-10- No 400mg Take 1 Take 1 (NEURONTIN) 0-23 10-23 capsule capsul e 400 MG 00:00: 23:59 (400 mg (400 mg capsule 00 :00 total) by total) b y mouth mouth Three (3) Three (3) times a times a day. day. Ambien CR 2019-10 Yes 12.5MG 1 HS 12.5 MG 0-13 Oral TABLET 00:00: EXTENDED-RE 00 LEASE Vraylar 1.5 2019-1 Yes 1.5MG 1 qd x 7 MG Oral 0-13 then 3mg CAPSULE 00:00: qd x 3 00 weeks traZODone 2019-0 No 50MG Take 1-2 HCl 50 MG 9-15 tablets Oral TABLET 00:00: QHS 00 cyclobenzap 2019-0 No TAKE 1 TO EVERT[place] E 1 TO rine 8-26 2 TABLETS 2 TABLETS (FLEXERIL) 00:00: BY MOUTH BY MO UTH 5 MG tablet 00 EVERY 12 EVERY 12 HOURS HOURS NEEDED FOR NEEDED MUSCLE FOR SPASM AND MUSCLE TIGHTNESS SPASM AND TIGHTNESS gabapentin 0 2020- No TAKE 1 TAKE 1 (NEURONTIN) 8-26 10-23 CAPSULE BY CAP CHERIE 300 MG 00:00: 00:00 MOUTH BY MOUTH capsule 00 :00 THREE THREE TIMES TIMES DAILY DAILY DIRECTED DIRECTED Robaxin-750 2019-0 No 1 TID Robaxin-75 750 mg 7-16 0 750 mg tablet Take 00:00: tablet 1 tablet 3 00 Take 1 times a day tablet 3 by oral times a route. day by oral route. traZODone 2019-0 Yes 50MG Take 1-2 HCl 50 MG 5-29 tablets Oral TABLET 00:00: QHS 00 traZODone 2019-0 Yes 50MG Take 1-2 HCl 50 MG 4-03 tablets Oral TABLET 00:00: QHS 00 Trintellix 2020-0 Yes 5MG 1 tab po q 5 MG Oral 2-28 day TABLET 00:00: 00 SEROquel 25 2020-0 Yes 25MG 1-2 tabs q MG Oral 2-28 HS for TABLET 00:00: sleep 00 Neurontin 2020-0 Yes 300MG 1 cap 300 MG Oral 2-28 Three CAPSULE 00:00: times a 00 day Rexulti 2 2020-0 Yes 2MG 1 tab po MG Oral 2-28 q day TABLET 00:00: 00 Neurontin 2019-1 Yes 300MG 1 cap 300 MG Oral 1-25 Three CAPSULE 00:00: times a 00 day SEROquel 25 2019-1 Yes 25MG 1-2 tabs q MG Oral 1-25 HS for TABLET 00:00: sleep 00 Rexulti 2 2019-1 Yes 2MG 1 tab po MG Oral 1-25 q day TABLET 00:00: 00 Trintellix 2019-1 Yes 5MG 1 tab po q 5 MG Oral 1-25 day TABLET 00:00: 00 Neurontin 2019-0 Yes 300MG 1 cap 300 MG Oral 9-24 Three CAPSULE 00:00: times a 00 day Rexulti 2 2019-0 Yes 2MG 1 tab po MG Oral 9-24 q day TABLET 00:00: 00 Trintellix 2019-0 Yes 5MG 1 tab po q 5 MG Oral 9-24 day TABLET 00:00: 00 SEROquel 25 2019-0 Yes 25MG 1-2 tabs q MG Oral 9-24 HS for TABLET 00:00: sleep 00 traZODone 2019-0 No 150MG 1 tab q HS HCl 150 MG 8-13 Oral TABLET 00:00: 00 Mobic 7.5 2019-0 No 7.5MG 1 tab q MG Oral 8-13 day TABLET 00:00: 00 Neurontin 2019-0 No 300MG 1 cap 300 MG Oral 8-13 Three CAPSULE 00:00: times a 00 day Rexulti 2 2019-0 No 2MG 1 tab q MG Oral 8-13 day TABLET 00:00: 00 Trintellix 2019-0 No 5MG 1 tab q 5 MG Oral 8-13 day TABLET 00:00: 00 Naprosyn No 1 BID Naprosyn 500 mg 500 mg tablet Take tablet 1 tablet Take 1 twice a day tablet by oral twice a route. day by oral route. oxycodone 5 No 1 Q4H oxycodone mg tablet 5 mg Take 1 tablet tablet Take 1 every 4 tablet hours by every 4 oral route. hours by oral route. Robaxin-750 No 1 TID Robaxin-75 750 mg 0 750 mg tablet Take tablet 1 tablet 3 Take 1 times a day tablet 3 by oral times a route. day by oral route. trazodone No trazodone 50 mg 50 mg tablet 2 tablet 2 tablets po tablets po at hs at hs oxyCODONE No Every four Every (ROXICODONE (4) hours. fou r (4) ) 5 MG hours. immediate release tablet Problems Condition Condition Condition Status Onset Resolution Last Treatin g Comments Name Details Category Date Date Treatment Clinician Date Major Concern Active 2019-10 depressv 1-12 disorder, 00:00: recurrent 00 severe w/o psych features Post-trauma Concern Active 2019-10 tic stress 1-12 disorder, 00:00: unspecified 00 Major Concern Inactiv 2020-1 depressv e 1-10 disorder, 00:00: recurrent 00 severe w/o psych features Post-trauma Concern Inactiv 2020-1 tic stress e 1-10 disorder, 00:00: unspecified 00 Major Concern Inactiv 2020-1 depressv e 0-13 disorder, 00:00: recurrent 00 severe w/o psych features Post-trauma Concern Inactiv 2020-1 tic stress e 0-13 disorder, 00:00: unspecified 00 Major Concern Inactiv 2020-1 depressv e 0-09 disorder, 00:00: recurrent 00 severe w/o psych features Post-trauma Concern Inactiv 2020-1 tic stress e 0-09 disorder, 00:00: unspecified 00 Major Concern Inactiv 2020-0 depressv e 9-15 disorder, 00:00: recurrent 00 severe w/o psych features Post-trauma Concern Inactiv 2020-0 tic stress e 9-15 disorder, 00:00: unspecified 00 Degeneratio Degeneratio Problem Active 2020-0 n of lumbar n of Lumbar 8-19 interverteb Interverteb 00:00: ral disc ral Disc 00 Low back Low Back Problem Active 2020-0 pain Pain 8-19 00:00: 00 Lumbago Lumbago Problem Active 2020-0 with with 8-19 sciatica Sciatica 00:00: 00 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 Spondylolis 8-19 thesis thesis 00:00: 00 Major Concern Inactiv 2020-0 depressv e 8-18 disorder, 00:00: recurrent 00 severe w/o psych features Post-trauma Concern Inactiv 2020-0 tic stress e 8-18 disorder, 00:00: unspecified 00 Anxiety Anxiety Problem Active 2020-0 7-16 00:00: 00 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-16 disorder Disorder 00:00: 00 Depressive Depressive Problem Active 2020-0 disorder Disorder 7-16 00:00: 00 Neck pain Neck Pain Problem Active 2020-0 7-16 00:00: 00 Chronic Chronic Problem Active 2020-0 back pain Back Pain 7-16 00:00: 00 Major Concern Inactiv 2020-0 depressv e 7-08 disorder, 00:00: recurrent 00 severe w/o psych features Post-trauma Concern Inactiv 2020-0 tic stress e 7-08 disorder, 00:00: unspecified 00 Major Concern Inactiv 2020-0 depressv e 6-23 disorder, 00:00: recurrent 00 severe w/o psych features Post-trauma Concern Inactiv 2020-0 tic stress e 6- disorder, 00:00: unspecified 00 Major Concern Inactiv 2020-0 depressv e 6- disorder, 00:00: recurrent 00 severe w/o psych features Post-trauma Concern Inactiv 2020-0 tic stress e 6- disorder, 00:00: unspecified 00 Major Concern Inactiv 2020-0 depressv e 5- disorder, 00:00: recurrent 00 severe w/o psych features Post-trauma Concern Inactiv 2020-0 tic stress e 5- disorder, 00:00: unspecified 00 Not on file Not on file [id number] Procedures Procedure Date / Time Performed Performing Clinician Devic e CT LUMBAR SPINE WO CONTRAST 2020-08-16 14:04:11 Rolando Song XR LUMBAR SPINE AP AND LATERAL 2020-08-16 13:43:04 Johanna Song XR LUMBAR SPINE FLEXION AND 2020-08-16 10:40:29 Rolando Song EXTENSION ONLY MRI NEURO OUTSIDE FILM FOR 2020-07-26 18:23:08 Ady Jorge en CONTINUED CARE MRI NEURO OUTSIDE FILM FOR 2020-07-26 18:22:53 Ady Jorge en CONTINUED CARE MRI, lumbar spine, w/wo contrast 2020-05-09 00:00:00 EYE EXAM ESTABLISHED [facility] 2019-04-14 10:45:00 Office/outpatient Visit, Est 2017-06-01 00:00:00 Drug Screen, Qualitate/multi 2017-06-01 00:00:00 Office/outpatient Visit, Est 2017-04-22 00:00:00 Lumbar Spinal Fusion 2005-10-25 00:00:00 Neck Surgery Carpal Tunnel Surgery Hysterectomy Results Test Description Test Time Test Comments Text Results Atomic Results Result Comments Amphetamine 2020-09-04 03:55:00 Test Item Value Reference Range Comments Amphetamine (test code = 77448-4) Not Detected [id number] 03:55:00 Test Item Value Reference Range Comments Gabapentin (test code = 9738-6) Detected Dnnztiip2040-35-69 03:55:00 Test Item Value Reference Range Comments Fentanyl (test code = 26384-5) Not Detected Gsqjpiha1313-97-31 03:55:00 Test Item Value Reference Range Comments Tramadol (test code = 97912-1) Not Detected 6-Bbmtejdgnymkrpy7424-00Elgdmuguvbfezbb0361-15-15 03:55:00 Test Item Value Reference Range Comments 7-Aminoclonazepam (test code = 15162-5) Not Detected Gqjosimpnsc7120-73-92 03:55:00 Test Item Value Reference Range Comments Nordiazepam (test code = 01968-7) Not Detected Gqjynpaa3591-07-51 03:55:00 Test Item Value Reference Range Comments Oxazepam (test code = 70480-7) Not Detected Dztnpfbmaywxt0782-93-54 03:55:00 Test Item Value Reference Range Comments Buprenorphine (test code = 3414-0) Not Detected Ethyl Mbksicrqkyy0395-24-23 03:55:00 Test Item Value Reference Range Comments Ethyl Glucuronide (test code = 72695-2) Not Detected Ymlucmuxl5922-13-51 03:55:00 Test Item Value Reference Range Comments Methadone (test code = 3773-9) Not Detected Zfocudu3383-93-04 03:55:00 Test Item Value Reference Range Comments Codeine (test code = 13308-8) Not Detected Kvtepksg2762-90-15 03:55:00 Test Item Value Reference Range Comments Morphine (test code = 47251-4) Detected Lmvaolorgue7469-28-02 03:55:00 Test Item Value Reference Range Comments Hydrocodone (test code = 54299-5) Not Detected Ebttflcoqqlrm8787-02-74 03:55:00 Test Item Value Reference Range Comments Hydromorphone (test code = 9834-3) Not Detected Xrabkqujk7321-95-97 03:55:00 Test Item Value Reference Range Comments Oxycodone (test code = 03742-3) Not Detected Mpronqlhwkw6347-05-41 03:55:00 Test Item Value Reference Range Comments Oxymorphone (test code = 61244-0) Not Detected Bjsghiaqntejc4265-52-26 03:55:00 Test Item Value Reference Range Comments Phencyclidine (test code = 8234-7) Not Detected Fxkonkienoepymo8616-15-19 03:55:00 Test Item Value Reference Range Comments Benzoylecgonine (test code = 8187-7) Not Detected THINPREP [id number] 13:54:00 Test Item Value Reference Range Comments CLINICAL INFORMATION: None given (test code = 58452-7) LMP: (test code = UNKNOWN 8665-2) PREV. PAP: (test code = UNKNOWN 43764-5) PREV. BX: (test code = N/A 28361-3) SOURCE: (test code = Cervix, End ocervix 66629-5) STATEMENT OF ADEQUACY: Satisfact ory for (test code = 84642-5) evaluation .Endocervical/transformation zone componentpr esent. INTERPRETATION/RESULT: Negative for intraepithelial lesion or (test code = 80931-8) malignancy .Reactive cellular changes associated with repair BODY WELDER: (test EAW, CT( ASCP)CT screening location: [facility] code = ) [place] [address] PATHOLOGIST: (test code Kody Gregg MD, Board = 27561-0) Certification in Anatomic/Clinical Pathology and CytopathologyEle ctronically Signed HPV mRNA E6/[id number] 13:54:00 Test Item Value Reference Range Comments HPV mRNA E6/E7 (test Not Detected NOT DETECTED This test w as performed using the code = 51625-1) APTIMA HPV Assay ([employer]This assay detects E6/E7 viral messenger RNA (mRNA) from 14high-risk HPV types (16,18,31,33,35, 39,45,51,52,56,58 ,59,66,68).The a nalytical performance cande acteristics ofthis assay hav e been determined by [employer]. The modifications shay ve not beencleared or a pproved by the FDA. This assay hasbeen validated pursuant to the CLIA regulationsand i s used for clinical purpose s. HEMOGLOBIN A1c WITH [id number] 06:39:00 Test Item Value Reference Range Comments HEMOGLOBIN A1c (test 5.1 % of total Hgb <5.7 For the purpose of screening code = 4548-4) for the presence ofdiabetes:<5.7% Consistent with the absence of diabetes5.7-6.4% Consistent with increased r isk for diabetes(prediab etes)> or =6.5% Consistent with diabetesThis ass ay result is consistent with a decreased riskof diabetes. Currently, no consensus exi sts regarding use of hemoglobin A1c for diagnosi s of diabetes in children.Accordi ng to [place] Di[employer] s Association (ADA )guidelines, hemoglobin A1c < 7.0% represents optim alcontrol in non- laura betic patients. Differ entmetrics may apply to spe cific patient populations.[employer] in Diabetes(ADA). eAG (mg/dL) (test code 100 (calc) = 00278-9) eAG (mmol/L) (test code 5.5 (calc) = 64687-3) CT Lumbar Spine Wo Contrast (08/16/2020 2:04 PM EDT)2020-08-16 14:25:13CT Lumbar Spine Wo Contrast (08/16/2020 2:04 PM EDT)SpecimenImpressionsPerformed At [facility]ela of posterior spinal instrumentation at L4-L5 with interbody spacer. No evidence of acute adverse hardware feature. Unchanged grade 1 anterolisthesis of L5 on S1. Multilevel facet arthropathy with at least moderate neural foraminal narrowing at L1-L2, L2-L3, L3-L4 and L5-S1, better depicted on recent MRI of the lumbar spine 06/04/2020. [facility] RADNarrativePerformed AtEXAM: Computed tomography, lumbar spine without contrast material.DATE: 08/16/2020 2:04 PMACCESSION: [id number]: 08/16/2020 2:25 PMINTERPRETATION LOCATION: [facility] [place] CLINICAL INDICATION: 54 years old Female with Eval L3 ; Back pain or rad iculopathy, prior surgery, new symptoms - M43.10 - Acquired spondylolisthesis COMPARISON: MRI lumbar spine 06/04/2020. Lumbar spine radiographs 08/13/2020. TECHNIQUE: Axial CT images through the lumbar spine without contrast. Coronal and sagittal reformatted images, bone and soft tissue algorithm are provided. FINDINGS: Mild levocurvature of the lumbar spine with maintenance of lumbar lordosis. The patient is status post laminotomy and posterior instrumented fusion spanning L4-L5 with an intervertebral disc spacer and evidence of osseous fusion of the L4 and L5 vertebral bodies and posteriorelements. The hardware is intact without progressive lucency about the hardware to suggest looseningor infection. No fracture surrounding the hardware or evidence of recent fracture involving the lumbar spine. Vertebral body heights are maintained. There is grade 1 anterolisthesis of L5 on S1 with vacuum disc phenomenon, similar prior radiographs. Degenerative disc disease and facet arthropathy of the lumbar spine with intervertebral disc space narrowing, endplate sclerosis and osteophyte formation. Endplate osteophyte formation and facet arthropathy contributing to at least moderate neural foraminal narrowing at L1-L2 on the left, at L2-L3 on the right and L3-L4 bilaterally, worse on the right, with moderate bilateral neural foraminal narrowing at L5-S1. This is better depicted on previous MRI. Paraspinal soft tissues unremarkable. Colonic diverticulosis. The sacroiliac joints, bilateral hips and pubic symphysis are approximated. [facility] RADProcedure NoteInterface, Rad Results In - 08/16/2020 2:41 PM EDTEXAM: Computed tomography, lumbar spine without contrast material. DATE: 08/16/2020 2:04 PM DICTATED: 08/16/2020 2:25 PM INTERPRETATION LOCATION: [facility] [place] CLINICAL INDICATION: 54 years old Female with Eval L3 ; Back pain or radiculopathy, prior surgery, new symptoms - M43.10 - Acquired spondylolisthesis COMPARISON: MRI lumbar spine 06/04/2020. Lumbar spine radiographs 08/13/2020. TECHNIQUE: Axial CT images through the lumbar spine without contrast. Coronal and sagittal reformatted images, bone and soft tissue algorithm are provided. FINDINGS: Mild levocurvature of the lumbar spine with maintenance of lumbar lordosis. The patient is status post laminotomy and posterior instrumented fusion spanning L4-L5 with an intervertebral disc spacer and evidence of osseous fusion of the L4 and L5 vertebral bodies and posterior elements. The hardware is intact without progressive lucency about the hardware to suggest loosening or infection. No fracture surrounding the hardware or evidence of recent fracture involving the lumbar spine. Vertebral body heights are maintained. There is grade 1 anterolisthesis of L5 on S1 with vacuum disc phenomenon, similar prior radiographs. Degenerative disc disease and facet arthropathy of the lumbar spine with intervertebral disc space narrowing, endplate sclerosis and osteophyte formation. Endplate osteophyte formation and facet arthropathy contributing to at least moderate neural foraminal narrowing at L1-L2 on the left, at L2-L3 on the right and L3-L4 bilaterally, worse on the right, with moderate bilateral neural foraminal narrowing at L5-S1. This is better depicted on previous MRI. Paraspinal soft tissues unremarkable. Colonic diverticulosis. The sacroiliac joints, bilateral hips and pubic symphysis are approximated. IMPRESSION:Sequela of posterior spinal instrumentation at L4-L5 with interbody spacer. No evidence of acute adverse hardware feature. Unchanged grade 1 anterolisthesis of L5 on S1. Multilevel facet arthropathy with at least moderate neural foraminal narrowing at L1-L2, L2-L3, L3-L4 and L5-S1, better depicted on recent MRI of the lumbar spine 06/04/2020. Performing OrganizationAddressCity/State/ZIP CodePhone NumberE[facility] [id number] [facility].[place], [place] [address]QG Lumbar Spine 2 or 3 Views (08/16/2020 1:43 PM EDT)2020-08-16 13:47:45XR Lumbar Spine 2 or 3 Views (08/16/2020 1:43 PM EDT)SpecimenImpressionsPerformed AtSequela of L4-5 posterior instrument fusion with interbody spacer without evidence for adverse hardware feature. Unchanged appearance of mild anterolisthesis of L5 on S1. L3 superior endplate compression deformity. Multilevel degenerative disc diseaseEM RADNarrativePerformed AtEXAM: XR LUMBAR SPINE 2 OR 3 VIEWSDATE: 08/16/2020 1:43 PMACCESSION: [id number]: 08/16/2020 1:47 PMINTERPRETATION LOCATION: [facility] CLINICAL INDICATION: 54 years old Female with possible L3 deformity compression - M43.10 - Acquired spondylolisthesis COMPARISON: Same day flexion-extension lumbar spine radiographs. TECHNIQUE: AP and lateral views of the lumbar spine. FINDINGS: There are 5 nonrib-bearing lumbar vertebral seg ments. Sequela of L4-5 instrumented posterior fusion with interbody spacer without perihilar lucencyto suggest loosening or infection. Small L3 superior endplate compression deformity with sclerosis. Unchanged mild anterolisthesis of L5 on S1 without significant translation, flexion, or extension. Multilevel mild disc space narrowing, most prominent at L2-3. Unchanged multilevel posterior osteophytosis with at least mild bony spinal canal narrowing. [facility] [place] RADProcedure NoteInterface, Rad Results In - 08/16/2020 2:45 PM EDTEXAM: XR LUMBAR SPINE 2 OR 3 VIEWS DATE: 08/16/2020 1:43 PM DICTATED: 08/16/2020 1:47 PM INTERPRETATION LOCATION: [facility] [place] CLINICAL INDICATION: 54 yearsold Female with possible L3 deformity compression - M43.10 - Acquired spondylolisthesis COMPARISON: Same day flexion-extension lumbar spine radiographs. TECHNIQUE: AP and lateral views of the lumbar spine. FINDINGS: There are 5 nonrib-bearing lumbar vertebral segments. Sequela of L4-5 instrumented posterior fusion with interbody spacer without perihilar lucency to suggest loosening or infection. Small L3 superior endplate compression deformity with sclerosis. Unchanged mild anterolisthesis of L5 on S1 without significant translation, flexion, or extension. Multilevel mild disc space narrowing, most prominent at L2-3. Unchanged multilevel posterior osteophytosis with at least mild bony spinal canalnarrowing. IMPRESSION: Sequela of L4-5 posterior instrument fusion with interbody spacer without evidence for adverse hardware feature. Unchanged appearance of mild anterolisthesis of L5 on S1. L3 superior endplate compression deformity. Multilevel degenerative disc diseasePerforming OrganizationAddressCity/State/ZIP CodePhone NumberE[facility] [id number] [facility].[place], [place] [address]EO Lumbar Spine Flexion And Extension Only (08/16/2020 10:40 AM EDT)2020-08-16 11:15:20XR Lumbar Spine Flexion And Extension Only (08/16/2020 10:40 AM EDT)SpecimenImpressionsPerformed AtSequela of L4-5 posterior instrument fusion with interbody spacer without evidence for adverse hardware feature. Unchanged appearance of mild anterolisthesis of L5 on S1. L3 superior endplate compressiondeformity. Multilevel degenerative disc disease with at least mild bony spinal canal narrowing.[facility] [place] RADNarrativePerformed AtEXAM: XR LUMBAR SPINE FLEXION AND EXTENSION ONLYDATE: 08/16/2020 10:40 AMACCESSION: [id number]: 08/16/2020 11:15 AMINTERPRETATION LOCATION: [facility] [place] CLINICAL INDICATION: 54 years old Female with spondy - M43.10 - Spondylolisthesis, unspecified spinal region COMPARISON: 06/04/2020 outside lumbar spine MRI. TECHNIQUE: AP and lateral views of the lumbar spine and l ateral views in flexion and extension. FINDINGS: There are 5 nonrib-bearing lumbar vertebral segments. Sequela of L4-5 instrumented posterior fusion with interbody spacer without perihardware lucency to suggest loosening or infection. L3 superior endplate compression deformity. Mild anterolisthesis ofL5 on S1 without significant translation flexion or extension. Multilevel mild disc space narrowing,most prominent at L2-3. Multilevel posterior osteophytosis leading to at least mild bony spinal canal narrowing. [facility] RADProcedure NoteInterface, Rad Results In - 08/16/2020 11:45 AM EDTEXAM: XR LUMBAR SPINE FLEXION AND EXTENSION ONLY DATE: 08/16/2020 10:40 AM DICTATED: 08/16/2020 11:15 AM INTERPRETATION LOCATION: [facility] [place] CLINICAL INDICATION: 54 years old Female with spondy - M43.10 - Spondylolisthesis, unspecified spinal region COMPARISON: 06/04/2020 outside lumbar spine MRI. TECHNIQUE: AP and lateral views of the lumbar spine and lateral views in flexion and extension. FINDINGS: There are 5 nonrib-bearing lumbar vertebral segments. Sequela of L4-5 instrumented posterior fusion with interbody spacer without perihardware lucency to suggest loosening or infection. L3 superior endplate compression deformity. Mild anterolisthesis of L5 on S1 without significant translation flexion or extension. Multilevel mild disc space narrowing, most prominent at L2-3. Multilevel posterior osteophytosis leading to at least mild bony spinal canal narrowing. IMPRESSION: Sequela of L4-5posterior instrument fusion with interbody spacer without evidence for adverse hardware feature. Unchanged appearance of mild anterolisthesis of L5 on S1. L3 superior endplate compression deformity. Multilevel degenerative disc disease with at least mild bony spinal canal narrowing.Performing OrganizationAddressCity/State/ZIP CodePhone NumberE[facility] [id number] [facility].[place], [place] [address]WMW Neuro Outside Film For Continued Care (07/26/2020 6:23 PM EDT)2020-07-26 00:00:00MRI Neuro Outside Film For Continued Care (07/26/2020 6:23 PM EDT)SpecimenNarrativePerformed AtTheseimages were imported for continued care purposes only. They will not be interpreted and no charges will apply.UNCHCSRADPerforming OrganizationAddressCity/State/ZipcodePhone NumberCR[facility]ICAL ACCESS HOSPITALRADMRI Neuro Outside Film For Continued Care (07/26/2020 6:22 PM EDT)2020-07-26 00:00:00MRI Neuro Outside Film For Continued Care (07/26/2020 6:22 PM EDT)SpecimenNarrativePerformed AtTheseimages were imported for continued care purposes only. They will not be interpreted and no charges will apply.UNCHCSRADPerforming OrganizationAddressCity/State/ZipcodePhone CnszatRZWJMJICSAmxddsc5859-92-51 08:18:00 Test Item Value Reference Range Comments Codeine (test code = 78495-0) Not Detected [id number] 08:18:00 Test Item Value Reference Range Comments pH (test code = 29132-6) 5.4 U/L [id number] 08:18:00 Test Item Value Reference Range Comments Hydrocodone (test code = 88175-6) Not Detected Wlqxezmcxuoiy5322-72-12 08:18:00 Test Item Value Reference Range Comments Hydromorphone (test code = 9834-3) Not Detected Weygercel4664-29-46 08:18:00 Test Item Value Reference Range Comments Oxycodone (test code = 61769-9) Detected Gukohjpfulk8650-22-23 08:18:00 Test Item Value Reference Range Comments Oxymorphone (test code = 96478-8) Detected Tnqwayzgmxgjb9758-44-55 08:18:00 Test Item Value Reference Range Comments Phencyclidine (test code = 8234-7) Not Detected Qqbzoezbrgdfhdz1313-27-84 08:18:00 Test Item Value Reference Range Comments Benzoylecgonine (test code = 8187-7) Not Detected Bapjfbpzgus9968-04-35 08:18:00 Test Item Value Reference Range Comments Amphetamine (test code = 32260-5) Not Detected Tinidssxtu8481-05-36 08:18:00 Test Item Value Reference Range Comments Gabapentin (test code = 9738-6) Detected Gvqpbcjy7921-04-51 08:18:00 Test Item Value Reference Range Comments Fentanyl (test code = 62587-6) Not Detected Kmljdcld7860-96-49 08:18:00 Test Item Value Reference Range Comments Tramadol (test code = 92951-5) Not Detected 9-Dduyememsdoxmlp3452-63Oanbisoxtouieqb2836-00-48 08:18:00 Test Item Value Reference Range Comments 7-Aminoclonazepam (test code = 83824-5) Not Detected Ygceuxcrjpo3742-79-37 08:18:00 Test Item Value Reference Range Comments Nordiazepam (test code = 30057-7) Not Detected Opooxjkm5061-72-75 08:18:00 Test Item Value Reference Range Comments Oxazepam (test code = 07647-5) Not Detected Vafrwjusnucpv3170-38-31 08:18:00 Test Item Value Reference Range Comments Buprenorphine (test code = 3414-0) Not Detected Ethyl Kgqykcubsmo1661-81-93 08:18:00 Test Item Value Reference Range Comments Ethyl Glucuronide (test code = 58004-7) Not Detected Xsefvkhgw0001-97-18 08:18:00 Test Item Value Reference Range Comments Methadone (test code = 3773-9) Not Detected Kfruixd6620-32-74 00:40:00 Test Item Value Reference Range Comments Glucose (test code = 1558-6) Negative mg/dL Hxylzcow1499-18-86 00:40:00 Test Item Value Reference Range Comments Chloride (test code = 2069-3) 100 mmol/L Afumqrdbej4957-96-53 00:40:00 Test Item Value Reference Range Comments Creatinine (test code = 16214-2) 0.7 mg/dL kEPN1757-31-47 00:40:00 Test Item Value Reference Range Comments eGFR (test code = 94286-0) CARY: 91.8 AA: 111.2 Slfhcns9134-71-06 00:40:00 Test Item Value Reference Range Comments Calcium (test code = 28861-1) 9.9 mg/dL OWG7766-44-68 00:40:00 Test Item Value Reference Range Comments ALT (test code = 6020-2) 15 U/L RWO8964-21-04 00:40:00 Test Item Value Reference Range Comments AST (test code = 41478-6) 18 U/L Jxupoxq2730-13-57 00:40:00 Test Item Value Reference Range Comments Albumin (test code = 1747-5) 4.5 g/dL Nabqxaavqci3315-40-08 00:40:00 Test Item Value Reference Range Comments Cholesterol (test code = 2093-3) 237 mg/dL Uarctruhsnky8090-55-88 00:40:00 Test Item Value Reference Range Comments Triglyceride (test code = 3043-7) 312 mg/dL WVZ9671-26-46 00:40:00 Test Item Value Reference Range Comments HDL (test code = 2085-9) 53 mg/dL TGV1481-98-17 00:40:00 Test Item Value Reference Range Comments RPR (test code = 42553-7) NONREACTIVE M/mm3 Sx6455-56-90 00:40:00 Test Item Value Reference Range Comments Ph (test code = 21228-6) 5 Glcxuooft5263-70-25 00:40:00 Test Item Value Reference Range Comments Bilirubin (test code = 27638-4) Negative Thamgnw7507-08-33 00:40:00 Test Item Value Reference Range Comments Ketones (test code = 82128-8) Negative Jnovmef5161-24-69 00:40:00 Test Item Value Reference Range Comments Protein (test code = 35332-1) Negative Pndohldntqvz3175-93-28 00:40:00 Test Item Value Reference Range Comments Urobilinogen (test code = 3107-0) Negative Vurqg1885-97-02 00:40:00 Test Item Value Reference Range Comments Blood (test code = 882-1) 1+ Red Blood Cbrl4656-29-27 00:40:00 Test Item Value Reference Range Comments Red Blood Cell (test code = 1007-4) 1 /HPF Ncjbzzga1702-46-73 00:40:00 Test Item Value Reference Range Comments Bacteria (test code = 01548-0) 4+ Ifcceqgopct0430-82-27 22:07:00 Test Item Value Reference Range Comments Amphetamine (test code = 55178-9) Not Detected Csllgptjzq1335-81-79 22:07:00 Test Item Value Reference Range Comments Gabapentin (test code = 9738-6) Not Detected Pdhhdpqv7331-47-05 22:07:00 Test Item Value Reference Range Comments Fentanyl (test code = 68177-7) Not Detected Mzcglxtq2226-75-24 22:07:00 Test Item Value Reference Range Comments Tramadol (test code = 06618-9) Not Detected 7-Kvxmyxgxxpommbb6289-43Ahsqruuctnicmfd4799-58-21 22:07:00 Test Item Value Reference Range Comments 7-Aminoclonazepam (test code = 29352-7) Not Detected Prpddbfznly4450-17-82 22:07:00 Test Item Value Reference Range Comments Nordiazepam (test code = 72120-3) Not Detected Beohosrd3993-09-85 22:07:00 Test Item Value Reference Range Comments Oxazepam (test code = 91800-9) Not Detected Coweujhfpermz0388-31-88 22:07:00 Test Item Value Reference Range Comments Buprenorphine (test code = 3414-0) Not Detected Ethyl Anfashtylyg1576-22-21 22:07:00 Test Item Value Reference Range Comments Ethyl Glucuronide (test code = 23080-9) Not Detected Efevspawv2411-24-39 22:07:00 Test Item Value Reference Range Comments Methadone (test code = 3773-9) Not Detected Aezoqoa6113-14-35 22:07:00 Test Item Value Reference Range Comments Codeine (test code = 23903-8) Not Detected jX9751-15-55 22:07:00 Test Item Value Reference Range Comments pH (test code = 43443-0) 5.2 U/L Ycmoksyogop4505-39-24 22:07:00 Test Item Value Reference Range Comments Hydrocodone (test code = 47917-7) Not Detected Dtigkqdguijhv6317-37-61 22:07:00 Test Item Value Reference Range Comments Hydromorphone (test code = 9834-3) Not Detected Abccwmrew3745-84-44 22:07:00 Test Item Value Reference Range Comments Oxycodone (test code = 78993-6) Not Detected Fxmfuwpsdbd4358-36-59 22:07:00 Test Item Value Reference Range Comments Oxymorphone (test code = 46082-9) Not Detected Mpogwuozxgpst1835-29-49 22:07:00 Test Item Value Reference Range Comments Phencyclidine (test code = 8234-7) Not Detected Auewjrxnxojwqtk6966-46-31 22:07:00 Test Item Value Reference Range Comments Benzoylecgonine (test code = 8187-7) Not Detected Urine Drug Screen (in-house)2017-06-01 00:00:00 Test Item Value Reference Range Comments Barbituates (test code = BAR) neg Opiates (test code = OPI) neg Marijuana (test code = THC) neg Phencyclidine (test code = PCP) neg Cocaine (test code = SARA) neg Methemphetamine (test code = MET) neg Methadone (test code = MTD) neg Benzodiazepines (test code = BZO) neg Buprenorphine (test code = BUP) neg Tricyclic Antidepressants (test code = TCA) neg Amphetemine (test code = AMP) neg Morphine (test code = MOR) neg Oxycodone (test code = OXY) neg Ecstasy (test code = MDMA) neg Hep C Eyyqs8253-08-16 00:00:00 Test Item Value Reference Range Comments Hep C Rapid (test code = HepCRapid) Negative Hemoglobin L7q1913-97-87 00:00:00 Test Item Value Reference Range Comments A1c (test code = A1c) 4.9 Assessments Condition Name Status Diagnosis Date Treating Clinici an Lumbago with sciatica Active 2020-07-19 11:43:19 Acquired spondylolisthesis Active 2020-07-19 11:43:20 Degeneration of lumbar intervertebral Active 2020-07-19 11:43:21 disc Low back pain Active 2020-06-12 09:22:38 Neck pain Active 2020-06-12 09:55:20 Degeneration of lumbar intervertebral Active 2020-06-12 13:18:13 disc Lumbago with sciatica Active 2020-06-12 13:18:13 Acquired spondylolisthesis Active 2020-06-12 13:18:13 History of spinal fusion Active 2020-05-09 13:15:43 Chronic low back pain Active 2020-05-09 13:17:02 Lumbar radiculopathy Active 2020-05-13 16:50:35 Degeneration of lumbar intervertebral Active 2020-05-13 16:50:40 disc Arthropathy of lumbar facet joint Active 2020-05-13 16: 50:46 Total retinal detachment, left eye Active Dry eye syndrome of bilateral lacrimal Active glands Presbyopia Active Aphakia, left eye Active Pain in unspecified joint Active Major depressive disorder, recurrent, Active moderate Major depressive disorder, recurrent, Active moderate Pain in unspecified joint Active Pain in unspecified joint Active Major depressive disorder, recurrent, Active moderate Pain in unspecified joint Active Major depressive disorder, single Active episode, unspecified Hyperglycemia, unspecified Active Major depressive disorder, single Active episode, unspecified Hyperglycemia, unspecified Active Rheumatoid arthritis, unspecified Active Encounter for screening for diabetes Active mellitus Obesity, unspecified Active Rheumatoid arthritis, unspecified Active Encounter for screening for diabetes Active mellitus Obesity, unspecified Active Encounters Start End Encounter Admission Attending Care Care Encounter Date/Time Date/Time Type Type Clinicians Facility Department ID 2020-09-05 2020-09-05 [facility] [id number] [id number] 08:07:00 09:00:00 py 60 Health Services f8-4773-a2b Services [id number] 928 2020-09-03 2020-09-03 Eval & [facility] 881 [id number] 08:20:00 08:40:00 visit for Health Services c9-44fa-b3c estab pt Services e-s2279x233 detailed 6a0 2020-08-16 2020-08-16 [facility] [id number] 13:54:50 23:59:00 2020-08-16 2020-08-16 Out[facility] [id number] 387_ 13:54:49 23:59:00 [place] [id number] 2020-08-16 2020-08-16 Outpatient [facility] [id number] 387_ 13:38:41 23:59:00 [place] [id number] 2020-08-16 2020-08-16 [facility] [id number] 13:38:41 23:59:00 2020-08-16 2020-08-16 Outpatient [facility] [id number] 387_ 10:34:20 23:59:00 [place] [id number] 2020-08-16 2020-08-16 [facility] [id number] 10:34:20 23:59:00 2020-08-16 2020-08-16 Outpatient [facility] [id number] 387_ 10:28:35 23:59:00 [id number] 2020-08-16 2020-08-16 [facility] [id number] 10:28:35 11:28:35 2020-08-16 2020-08-16 Outpatient [facility] [id number]_ 00:00:00 00:00:00 [place] [id number] 2020-08-16 2020-08-16 [facility] [id number] 00:00:00 00:00:00 2020-08-06 2020-08-06 Eval & [facility] 0e2 [id number] 08:20:00 08:40:00 visit for Health Services b6-4j27-3zj estab pt Services [id number] detailed 5a1 2020-08-02 2020-08-02 [facility] 89 [id number] 08:00:00 08:54:00 py 60 Health Services 70-498e-9aa Services 7-3w4c19zj8 cef 2020-07-26 2020-07-26 [facility] [id number]_ 18:19:13 23:59:00 [place] [id number] 2020-07-26 2020-07-26 [facility] [id number] 18:19:13 23:59:00 2020-07-26 2020-07-26 [facility] [id number] 18:18:14 23:59:00 2020-07-26 2020-07-26 [facility] [id number]_ 18:18:14 23:59:00 [place] [id number] 2020-07-19 2020-07-19 Bre Moss [id number] 00:00:00 00:00:00 Adrian, Surgical Surgical 0925 MD: [facility] [address], Ph. 2020-07-09 2020-07-09 Eval & [facility]gt [facility] 32f [id number] 15:00:00 15:25:00 visit for Health Services 91-4925-b0a estab pt Services 3-50x8d0yfk detailed c3e 2020-07-09 2020-07-09 Psychiatric [facility] 4c 1xn196-47 00:00:00 00:00:00 Diagnostic [facility] 7d-0d7x-v5 5 Evaluation Services 2-h19v2522z 76b 2020-06-12 2020-06-12 Bre Goelt [id number] 00:00:00 00:00:00 Adrian, Surgical Surgical 0819 MD: [facility], [address], [place] [address], Ph. 2020-06-11 2020-06-11 [facility] 32 s1o9ob-93 15:00:00 15:57:00 py 60 Health Services ed-4bdc-a4b Services 4-190a3y58o 86f 2020-05-09 2020-05-09 Suraj Goelnir Goelt 2633 00:00:00 00:00:00 jM, Surgical Surgical 0716 PAC: [address] [facility], [place] [address], Ph. 2020-05-01 2020-05-01 [facility] 5c 3j0fq0-79 11:38:00 11:56:00 py 30 Health Services d1-423d-90c Services 1-i1a27x4y0 c47 2020-04-16 2020-04-16 [facility] 15 [id number] 09:00:00 09:55:00 py 60 Health Services 23-8f4r-840 Services a-1x7190k2w 492 2020-04-02 2020-04-02 [facility] 35 afbcb1-78 09:02:00 09:40:00 py 45 Health Services 56-42ba-853 Services e-jvs8d0b2m 944 2020-03-19 2020-03-19 [facility] 01 mpc405-38 14:00:00 14:43:00 py 45 Health Services 64-4o45-n44 Services 6-o76de49m3 081 2019-06-03 2019-06-03 E 1 Raúl Holbrook [facility] 20 [id number] 18:59:00 20:27:00 Raúl Holbrook 2019-06-01 2019-06-01 Diagnostic [facility] [id number] [id number] 00:00:00 00:00:00 Assessment Health Services c4-4752-ad c Services f-76b9yzy05 42f 2019-04-14 2019-04-14 Outpatient TIM Torres 1A [id number] 10:45:00 10:45:00 [facility]-47FB-B02 [facility] [id number] CD4 2017-08-18 2017-08-18 Outpatient [facility] [id number] 00:00:00 23:59:00 [id number] 2017-06-01 2017-06-01 Outpatient [place], [facility] [id number] 00:00:00 00:00:00 [facility] 2017-04-22 2017-04-22 Outpatient [place], [facility] [id number] 00:00:00 00:00:00 [facility] 2016-11-18 2016-11-18 Outpatient [facility] [id number]_ 00:00:00 23:59:00 [id number] Payers Payer Name Policy Type Policy Number Effective Date Expiration D ate [employer]ICAID [place] [id number] 2020 00:00:00 ACCESS Plan of Treatment Planned Activity Planned Date Details Comments Future Scheduled Test [code = ] Future Scheduled Test [code = ] Future Scheduled Test [code = ] Future Scheduled Test [code = ] Future Scheduled Test [code = ] Future Scheduled Test [code = ] Future Scheduled Test [code = ] Future Scheduled Test [code = ] Future Scheduled Test [code = ] Future Scheduled Test [code = ] Future Scheduled Test [code = ] Future Scheduled Test [code = ] Future Scheduled Test [code = ] Future Scheduled Test [code = ] Social History Smoking Status Start Date Stop Date Never Smoker Vital Signs Vital Name Observation Time Observation Value Comments Height 2020-07-19 00:00:00 61 [in_i] Height 2020-06-12 00:00:00 61 [in_i] BMI (Body Mass Index) 2020-06-12 00:00:00 34 kg/m2 Body Weight 2020-06-12 00:00:00 180 [lb_av] Height 2020-05-09 00:00:00 61 [in_i] BMI (Body Mass Index) 2020-05-09 00:00:00 34 kg/m2 Body Weight 2020-05-09 00:00:00 180 [lb_av] Height 2020-09-03 08:20:00 61 [in_i] Weight Measured 2020-09-03 08:20:00 185 [lb_av] Heart Rate 2020-09-03 08:20:00 82 /min BP Systolic 2020-09-03 08:20:00 133 mm[Hg] BP Diastolic 2020-09-03 08:20:00 85 mm[Hg] Systolic blood pressure 2020-08-16 10:44:00 131 mm[Hg] Diastolic blood pressure 2020-08-16 10:44:00 77 mm[Hg] Heart rate 2020-08-16 10:44:00 92 /min Body height 2020-08-16 10:44:00 154.9 cm Body weight 2020-08-16 10:44:00 81.647 kg Height 2020-08-06 08:20:00 62 [in_i] Weight Measured 2020-08-06 08:20:00 177 [lb_av] Heart Rate 2020-08-06 08:20:00 80 /min BP Systolic 2020-08-06 08:20:00 110 mm[Hg] BP Diastolic 2020-08-06 08:20:00 72 mm[Hg] Height 2020-07-09 15:00:00 62 [in_i] Weight Measured 2020-07-09 15:00:00 163 [lb_av] Heart Rate 2020-07-09 15:00:00 95 /min BP Systolic 2020-07-09 15:00:00 129 mm[Hg] BP Diastolic 2020-07-09 15:00:00 83 mm[Hg] Hospital Discharge Instructions 1. Lumbago with sciatica 2. Acquired spondylolisthesis physical therapy referral spine surgeon referral pain management referral 3. Degeneration of lumbar intervertebral disc Discussion Note We will make the referrals for the physical therapy the injections and the referral to a tertiary care facility at this point I have nothing else to offer the patient I discussed this with the patient. After reviewing the patients history and physical findings, I determined that the patient has an increased risk of falling. I recommended using a cane or walker for added support if indicated. I also discussed the value of using a bed side commode or a urinal if nocturia or urinary incontinence is anissue. I suggested discussing additional fall prevention measures with the patient's primary care provider. Patient educational handouts: No information available.1. Low back pain 2. Neck pain 3. Degeneration of lumbar intervertebral disc 4. Lumbago with sciatica5. Acquired spondylolisthesis Discussion Note Discussed with the patient at this point my recommendation to begin with least with epidural steroid injections at L5-S1 and I will see her back after her EMG and nerve conduction studies are done. Patient educational handouts: No information available.1. History of spinal fusion MRI, lumbar spine, w/wo contrast 2. Chronic low back pain Robaxin-750 750 mg tablet 3. Lumbar radiculopathy 4. Degeneration of lumbar intervertebral disc 5. Arthropat hy of lumbar facet joint Discussion Note Patient educated on differential diagnosis X-rays from outside reviewed shows severe degenerative disc disease at L3-L4 L2-L3. It looks like a successful fusionof the L4 and L5. And some spondylolisthesis of L5-S1 Patient has increasing her radicular type symptoms I would like to obtain an MRI with contrast of the lumbar spine We will start on medications as above I have been encouraged to continue doing gentle home exercise program Patient educational handouts: No information available.
== END ==
LOC: WI 09:06
PROVIDERS: ATTEND Nurse Practitioner Family
DX: Z12.31 Encounter for screening mammogram for malignant neoplasm of breast (principal); Z80.3 Family history of malignant neoplasm of breast
CPT/HCPCS: 77067